=== PATIENT | male | born 1995 ===

== ENCOUNTER 2018-01-20 09:19 | Emergency (ER) | payer OTHER ==
--- NOTE | 2018-01-20 09:23 | ED PDOC ---
Arrival/HPI - General Time Seen by Provider: 01/20/18 09:22 Historian: Patient - History of Present Illness Narrative History of Present Illness (Text): 01/20/18 09:22 22 year old male, no significant pmh, nkda, complaining of coughing and fever started yesterday with sudden onset plus fatigue. Coughing with fatigue, mild runny nose, fever tmax unknown, no night sweat, no rash, no change in vision, no night sweat, no recent traveling, no abdominal pain or pelvic pain, no urinary symptoms, no other medical or psychological complaints. Past Medical History - Provider Review Nursing Documentation Reviewed: Yes Family/Social History - Physician Review Nursing Documentation Reviewed: Yes Family/Social History: Unknown Family HX Allergies/Home Meds Allergies/Adverse Reactions: Allergies No Known Allergies Allergy (Verified 01/20/18 09:25) Review of Systems - Review of Systems Constitutional: Fatigue, Fevers Eyes: absent: Vision Changes ENT: Rhinorrhea. absent: Hearing Changes Respiratory: Cough. absent: SOB, Sputum Cardiovascular: absent: Chest Pain Gastrointestinal: absent: Abdominal Pain, Nausea, Vomiting Musculoskeletal: absent: Arthralgias, Back Pain, Myalgias Skin: absent: Rash, Pruritis, Skin Lesions Neurological: absent: Headache, Dizziness Psychiatric: absent: Anxiety, Depression, Suicidal Ideation Physical Exam Vital Signs Reviewed: Yes Vital Signs Temp Pulse Resp BP Pulse Ox 01/20/18 09:56 85 19 97 01/20/18 09:22 99.2 F 87 18 129/81 87 L Temperature: Afebrile Blood Pressure: Normal Pulse: Regular Respiratory Rate: Normal Appearance: Positive for: Well-Appearing, Non-Toxic, Comfortable Pain Distress: None Mental Status: Positive for: Alert and Oriented X 3 - Systems Exam Head: Present: Atraumatic, Normocephalic, Other (no sinus tenderness) Pupils: Present: PERRL Extroacular Muscles: Present: EOMI Conjunctiva: Present: Normal Ears: Present: NORMAL TM, Normal Canal. No: Erythema Mouth: Present: Moist Mucous Membranes Pharnyx: No: ERYTHEMA, EXUDATE, TONSILS ENLARGED, Uvular Deviation, Muffled/ Hoarse Voice, Strider, Soft Palate/Uvular Edema Nose (External): Present: Atraumatic. No: Abrasion, Contusion, Laceration Nose (Internal): Present: Normal Inspection, No Active Bleeding, Rhinorrhea. No : Septal Hematoma, Epistaxis Neck: Present: Normal Range of Motion, Trachea Midline. No: Meningeal Signs, MIDLINE TENDERNESS, Paraspinal Tenderness, Lymphadenopathy Respiratory/Chest: Present: Clear to Auscultation, Good Air Exchange. No: Respiratory Distress, Accessory Muscle Use, Wheezes, Decreased Breath Sounds, Rales, Retracting, Rhonchi, Tachypneic, Tender to Palpation, Other Cardiovascular: Present: Regular Rate and Rhythm, Normal S1, S2. No: Murmurs Abdomen: Present: Normal Bowel Sounds. No: Tenderness, Distention, Peritoneal Signs, Rebound, Guarding Back: Present: Normal Inspection Upper Extremity: Present: Normal Inspection. No: Cyanosis, Edema Lower Extremity: Present: Normal Inspection. No: Edema Neurological: Present: GCS=15, Speech Normal, Motor Func Grossly Intact, Gait Normal, Memory Normal Skin: Present: Warm, Dry, Normal Color. No: Rashes Psychiatric: Present: Alert, Oriented x 3, Normal Insight, Normal Concentration Medical Decision Making ED Course and Treatment: 01/20/18 09:50 -chest xray 01/20/18 10:31 -Chest xray show lt. upper lobe appear to be pneumonia, will treat with levaquin , advised the patient to avoid gym and exercise as this may causes possible achilles tendon rupture or prolong QT, pt. verbally expressed understanding. -Pt. appears well, vitally stable, non-sick looking, clinical suspicious for influenza is high, will treat with tamiflu. -Discharge home with levaquin, tamiflu, tylenol, claritin d24, tessalon, stay hydrated, bed rest, follow up with your own pmd within 2 days, return to the ER for any new or worsening signs or symptoms. - RAD Interpretation Radiology Orders: 01/20/18 09:38 CHEST TWO VIEWS (PA/LAT) [RAD] Stat HISTORY: cough/fever COMPARISON: No prior. TECHNIQUE: Chest PA and lateral FINDINGS: LUNGS: There is an alveolar infiltrate in the left upper lobe seen on the frontal and lateral views. PLEURA: No significant pleural effusion identified. No pneumothorax apparent. CARDIOVASCULAR: Normal. OSSEOUS STRUCTURES: No significant abnormalities. VISUALIZED UPPER ABDOMEN: Normal. OTHER FINDINGS: The PA Ihsan Lind was called with these results IMPRESSION: Left upper lobe pneumonia Packager Machine: Radiologist - Medication Orders Current Medication Orders: Discontinued Medications Ibuprofen (Motrin Tab) 600 mg PO STAT STA Stop: 01/20/18 09:39 Last Admin: 01/20/18 09:45 Dose: 600 mg MAR Pain/Vitals Document 01/20/18 09:45 LA (Rec: 01/20/18 10:12 LA [id number]) Pain Reassessment Is This A Pain ReAssessment? No Sleep Is patient sleeping during reassessment? No Presence of Pain Presence of Pain Yes Pain Scale Used Pain Scale Used Numeric Location Left, Right or Bilateral Right Upper or Lower Upper Pain Location Body Site Abdomen Scale Used Numeric - PA / SKEIN [employer] HELPER / Resident Statement MD/DO has reviewed & agrees with the documentation as recorded. Disposition/Present on Arrival - Present on Arrival Any Indicators Present on Arrival: No History of DVT/PE: No History of Uncontrolled Diabetes: No Urinary Catheter: No History of Decub. Ulcer: No - Disposition Have Diagnosis and Disposition been Completed?: Yes Diagnosis: Flu-like symptoms, Pneumonia Disposition: HOME/ ROUTINE Disposition Time: 09:51 Patient Plan: Discharge Patient Problems: Current Active Problems Problem Status Onset Flu-like symptoms Acute Pneumonia Acute Condition: GOOD Additional Instructions: -Discharge home with levaquin, tamiflu, tylenol, claritin d24, tessalon, stay hydrated, bed rest, follow up with your own pmd within 2 days, return to the ER for any new or worsening signs or symptoms. Prescriptions: Acetaminophen [Tylenol 325mg tab] 2 tab PO QID PRN #30 tab PRN Reason: Other Benzonatate [Tessalon Perles] 100 mg PO TID PRN #30 sgl PRN Reason: Other Levofloxacin [Levaquin] 750 mg PO DAILY #5 tablet Loratadine/Pseudoephedrine [Claritin-D 24 Hour Tablet] 1 each PO DAILY PRN #7 tab.er.24h PRN Reason: Other Oseltamivir [Tamiflu] 75 mg PO BID #10 cap Referrals: [facility] [place] [Outside] - Follow up with primary Forms: WORK NOTE
[2018-01-20 09:56] VITALS: PULSE 85; RESP 19; O2SAT 97
--- NOTE | 2018-01-20 10:50 | RAD ---
HISTORY: cough/fever COMPARISON: No prior. TECHNIQUE: Chest PA and lateral FINDINGS: LUNGS: There is an alveolar infiltrate in the left upper lobe seen on the frontal and lateral views. PLEURA: No significant pleural effusion identified. No pneumothorax apparent. CARDIOVASCULAR: Normal. OSSEOUS STRUCTURES: No significant abnormalities. VISUALIZED UPPER ABDOMEN: Normal. OTHER FINDINGS: The PA Ihsan Lind was called with these results IMPRESSION: Left upper lobe pneumonia
[2018-01-20 11:03] VITALS: BP 127/80; TEMP 99
== END 2018-01-20 11:00 | disposition home or self-care (01) ==
LOC: ED 09:19
DX: J11.00 Influenza due to unidentified influenza virus with unspecified type of pneumonia (principal)

== ENCOUNTER 2018-04-18 21:38 | Emergency (ER) | payer OTHER ==
[2018-04-18 22:18] VITALS: BMI 31.8
[2018-04-18 22:19] VITALS: RESP 16; TEMP 99.3
--- NOTE | 2018-04-18 22:50 | ED PDOC ---
Arrival/HPI - General Chief Complaint: Trauma Time Seen by Provider: 04/18/18 22:36 Historian: Patient - History of Present Illness Narrative History of Present Illness (Text): 04/18/18 22:44 22yo male who present with complaint of left shoulder and left sided chest pain s/p trauma this evening. Notes that he fell off a tree this night and landed on his left arm. Reports chest pain with deep inspiration and movement. Denies LOC, nausea, vomiting, focal weakness, urinary/fecal incontinence, dizziness, [place], abdominal pain, back pain, headache, visual changes, any other complaint. Past Medical History - Provider Review Nursing Documentation Reviewed: Yes - Infectious Disease Hx of Infectious Diseases: None - Cardiac Hx Cardiac Disorders: No - Pulmonary Hx Respiratory Disorders: Yes Hx Asthma: Yes - Neurological Hx Neurological Disorder: No - HEENT Hx HEENT Disorder: No - Renal Hx Renal Disorder: No - Endocrine/Metabolic Hx Endocrine Disorders: No - Hematological/Oncological Hx Blood Disorders: No - Integumentary Hx Dermatological Disorder: No - Musculoskeletal/Rheumatological Hx Musculoskeletal Disorders: No - Gastrointestinal Hx Gastrointestinal Disorders: No - Genitourinary/Gynecological Hx Genitourinary Disorders: No - Psychiatric Hx Psychophysiologic Disorder: No Hx Substance Use: No - Anesthesia Hx Anesthesia: No Family/Social History - Physician Review Nursing Documentation Reviewed: Yes Family/Social History: Unknown Family HX Smoking Status: Never Smoked Hx Alcohol Use: No Hx Substance Use: No Allergies/Home Meds Allergies/Adverse Reactions: Allergies No Known Allergies Allergy (Verified 04/18/18 22:18) Review of Systems - Physician Review All systems were reviewed & negative as marked: Yes - Review of Systems Constitutional: Normal Eyes: Normal ENT: Normal Respiratory: Normal Cardiovascular: Chest Pain. absent: Palpitations, Edema Gastrointestinal: Normal Genitourinary Male: Normal Musculoskeletal: Arthralgias (Left shoulder) Skin: Normal Neurological: Normal Endocrine: Normal Hemo/Lymphatic: Normal Psychiatric: Normal Physical Exam Vital Signs Reviewed: Yes Vital Signs Temp Pulse Resp BP Pulse Ox 04/18/18 22:18 99.3 F 80 16 132/74 99 Temperature: Afebrile Blood Pressure: Normal Pulse: Regular Respiratory Rate: Normal Appearance: Positive for: Well-Appearing, Non-Toxic, Comfortable Pain Distress: None Mental Status: Positive for: Alert and Oriented X 3 - Systems Exam Head: Present: Atraumatic, Normocephalic Pupils: Present: PERRL Extroacular Muscles: Present: EOMI Conjunctiva: Present: Normal Mouth: Present: Moist Mucous Membranes Neck: Present: Normal Range of Motion Respiratory/Chest: Present: Clear to Auscultation, Good Air Exchange, Tender to Palpation (Left sided upper sternal wall). No: Respiratory Distress, Accessory Muscle Use, Wheezes, Decreased Breath Sounds, Rales, Retracting, Rhonchi, Tachypneic Cardiovascular: Present: Regular Rate and Rhythm, Normal S1, S2. No: Murmurs Abdomen: No: Tenderness, Distention, Peritoneal Signs Back: Present: Normal Inspection Upper Extremity: Present: Tenderness (Left proximal shoulder), Neurovascularly Intact. No: Cyanosis, Edema, Normal ROM (Limited on abduction up to 70degree secondary to pain), Swelling, Deformity Lower Extremity: Present: Normal Inspection. No: Edema Neurological: Present: GCS=15, CN II-XII Intact, Speech Normal Skin: Present: Warm, Dry, Normal Color. No: Rashes Psychiatric: Present: Alert, Oriented x 3, Normal Insight, Normal Concentration Medical Decision Making ED Course and Treatment: 04/19/18 00:15 Pt in ED for stated history. His pain was controlled in ED with medication., Chest xray - NAD. No PTX Left shoulder - No acute fracture/dislocation noted Result was DW the pt. Arm placed on a sling. Pt referred to ortho. - RAD Interpretation Radiology Orders: 04/18/18 22:43 CHEST TWO VIEWS (PA/LAT) [RAD] Stat SHOULDER LEFT [RAD] Stat - Medication Orders Current Medication Orders: Discontinued Medications Oxycodone/Acetaminophen (Percocet 5/325 Mg Tab) 1 tab PO STAT STA Stop: 04/18/18 22:44 Last Admin: 04/18/18 22:59 Dose: 1 tab MAR Pain Assessment Document 04/18/18 22:59 CNR (Rec: 04/18/18 22:59 CNR [id number]) Pain Reassessment Is this a pain reassessment? No Disposition/Present on Arrival - Present on Arrival Any Indicators Present on Arrival: No History of DVT/PE: No History of Uncontrolled Diabetes: No Urinary Catheter: No History of Decub. Ulcer: No History Surgical Site Infection Following: None - Disposition Have Diagnosis and Disposition been Completed?: Yes Diagnosis: Shoulder sprain, Chest pain Disposition: HOME/ ROUTINE Disposition Time: 00:20 Patient Plan: Discharge Condition: STABLE Discharge Instructions (ExitCare): Chest Pain (ED), Shoulder Sprain Additional Instructions: Follow up with your doctor/orthopedist Return to ED for any new or worsening symptoms Prescriptions: Ibuprofen [Motrin Tab] 600 mg PO Q6 #20 tab Lidocaine 5% [Lidoderm] 1 patch TOP BID #10 patch traMADol [Ultram] 50 mg PO TID #6 tab Referrals: FAMILY PROVIDER,NO [Primary Care Provider] - Follow up with primary Gurmeet Nicole MD [Staff Provider] - Follow up with primary Forms: [employer] (Finnish)
[2018-04-18] MEDS: Oxycodone/Acetaminophen 5/325 mg Tab PO STA (22:59)
[2018-04-19 00:43] VITALS: BP 130/66; PULSE 72; O2SAT 98
--- NOTE | 2018-04-19 09:11 | RAD ---
HISTORY: chest pain s/p trauma COMPARISON: 01/20/2018 TECHNIQUE: Chest PA and lateral FINDINGS: LUNGS: No active pulmonary disease. PLEURA: No significant pleural effusion identified. No pneumothorax apparent. CARDIOVASCULAR: Normal. OSSEOUS STRUCTURES: No significant abnormalities. VISUALIZED UPPER ABDOMEN: Normal. OTHER FINDINGS: None. IMPRESSION: No active disease.
--- NOTE | 2018-04-19 10:24 | RAD ---
PROCEDURE: Radiographs of the Left Shoulder HISTORY: shoulder pain s/p trauma COMPARISON: No prior. FINDINGS: BONES: Normal. No fracture. JOINTS: Normal. Glenohumeral and acromioclavicular joints preserved. No osteoarthritis. SOFT TISSUES: Normal. OTHER FINDINGS: None. IMPRESSION: Normal radiographs of the left shoulder.
== END 2018-04-19 00:42 | disposition home or self-care (01) ==
LOC: ED 21:38
DX: S43.402A Unspecified sprain of left shoulder joint, initial encounter (principal); W14.XXXA Fall from tree, initial encounter; Y92.89 Other specified places as the place of occurrence of the external cause; R07.9 Chest pain, unspecified